=== PATIENT | female | born 1950 | race American Indian/Alaskan Native ===

== ENCOUNTER 2017-12-29 09:06 | Outpatient (CLI) | payer MEDICARE ==
--- NOTE | 2017-12-29 12:46 | Mammography Report ---
BILATERAL DIGITAL DIAGNOSTIC MAMMOGRAM with CAD and RIGHT BREAST ULTRASOUND: 12/29/17 CLINICAL: Right palpable breast lump and pain. COMPARISON:08/20/16 FINDINGS: The breasts are heterogeneously dense, which may obscure small masses.No mass, architectural distortion or suspicious calcifications . No mammographic finding at the right upper inner periareolar palpable marker. Ultrasound of the right breast in the area of the palpable was performed. A complex cyst at 2 o'clock 5 cm from the nipple measures 8 x 7 x 4 mm. It contains a few septations and correlates with a palpable lump. A complex cyst at 8 o'clock 10 cm from the nipple measures 7 x 5 x 4 mm and correlates with the palpable lump. There is suggestion of a mural nodule but no blood flow is demonstrated by color or pulsed Doppler. IMPRESSION: Probably benign complex cysts of the right breast at 2 o'clock and 8 o'clock. Recommend three-month followup right breast ultrasound. BI-RADS CATEGORY: 3 - - Probably Benign ACR BI-RADS MAMMOGRAPHIC CODES: 0 = Needs additional imaging evaluation; 1 = Negative; 2 = Benign; 3 = Probably benign; 4 = Suspicious; 5 = Malignant; 6 = Known biopsy-proven malignancy COMMENT: 1. Dense breast tissue, i.e., adenosis, fibrocystic changes, etc., may obscure an underlying neoplasm. 2. Approximately 10% of cancers are not detected with mammography. 3. A negative mammography report should not delay biopsy if a clinically suspicious mass is present. COMMENT: Patient follow-up letters are generated by our [employer] application.
--- NOTE | 2017-12-30 11:35 | Cat Scan Report ---
CT ABDOMEN AND PELVIS WITH CONTRAST: 12/29/17 09:06:00 CLINICAL: Abdominal pain. COMPARISON: None. TECHNIQUE: Volumetric acquisition and 1.25 millimeter scan reconstructions after the intravenous injection of 100 cc Omnipaque 300. Oral contrast was also given. Consent was obtained prior to the administration of IV contrast. At the completion of the exam, I was notified by the technologist that contrast had extravasated into the hand and I immediately examined the patient. She had no complaint but the dorsum of the hand was moderately swollen but soft and cool to the touch. No skin discoloration. FINDINGS: Abdomen: Less than optimum opacification which is consistent with a significant extravasation of contrast at the time of the injection. The lung bases are clear. Normal liver size, contour in overall density. Several benign hepatic cysts. The largest is in the lateral segment of the left lobe and measures 3.2 x 2.3 cm. No liver mass. Normal hepatic vasculature and inferior vena cava. Normal bile ducts. No gallbladder identified. Normal stomach, duodenum, pancreas and spleen. Normal adrenal glands. A right upper pole renal cyst measures 8.2 x 7.7 cm. No other cysts are identified. No solid mass. A 2 mm nonobstructive right lower pole urinary calculus and a 1 mm left lower pole nonobstructive urinary calculus. The renal collecting systems and ureters are nondilated. Normal small bowel.Normal ascending, transverse and descending colon. An appendix is not identified. No mass, lymphadenopathy or ascites.No pneumoperitoneum. The anterior abdominal wall is intact with no ventral hernia. Pelvis: Normal urinary bladder and vaginal cuff status post hysterectomy. Normal ovaries. Normal rectum and sigmoid colon. Bilateral small fat containing femoral hernias, left larger than right. Bone windows demonstrate no bone lesion. IMPRESSION:1. Benign hepatic and right renal cysts. 2. Bilateral lower pole nonobstructive tiny urinary calculi. 3. Status post cholecystectomy, appendectomy and hysterectomy. 4. Small bilateral fat containing femoral hernias.
== END 2017-12-29 09:07 | disposition home or self-care (01) ==
LOC: SPVIMAG 09:06
PROVIDERS: ATTEND Internal Medicine
DX: N28.1 Cyst of kidney, acquired (principal); N20.0 Calculus of kidney; K41.20 Bilateral femoral hernia, without obstruction or gangrene, not specified as recurrent; K76.89 Other specified diseases of liver; N60.01 Solitary cyst of right breast; Z90.710 Acquired absence of both cervix and uterus; Z90.49 Acquired absence of other specified parts of digestive tract; Z90.89 Acquired absence of other organs
CPT/HCPCS: 74177; 76642; 77066; Q9967

== ENCOUNTER 2017-12-29 21:09 | Inpatient (IN) | payer MEDICARE ==
[2017-12-29] MEDS ORDERED: NORCO 7.5/325 PO ONE (21:55)
[2017-12-29] MEDS ORDERED: THERMAZENE 50 GRAM TP ONE (22:00)
--- NOTE | 2017-12-30 00:04 | Emergency Department Report ---
ED Burn/Smoke HPI - General Chief complaint: Burn/Smoke Inhalation Stated complaint: ALLGERIC REACTION Time Seen by Provider: 12/29/17 21:58 Source: patient Mode of arrival: Ambulatory Limitations: No Limitations - History of Present Illness Initial comments: This is a 67-year-old female nontoxic, well nourished in appearance, no acute signs of distress presents to the ED with c/o of right hand swelling and blisters 1 day. Patient states she went to a outpatient facility for a CT scan with contrast and IV contrast infiltrated and then patient developed hand swelling. Patient stated this occurred around 1PM. Patient then stated went home and developled swelling and blisters in the region. Patient denies taking anything besides soaking hand in water. Patient denies any chest pain, shortness of breathe, fever, chills, headache, nausea, vomiting, numbness, tingling, back pain, or abdominal pain. Patient states allergies to aspirin. MD Complaint: burn, chemical exposure -: This afternoon Type of Exposure: chemical (IV dye) Smoke Inhalation: none Place: industrial (care facility) Location - Extremities: Right: Forearm, Hand Severity: mild Severity scale (0 -10): 8 Associated Symptoms: denies: headache, vision changes, cough, diaphoresis, fever /chills, chest pain, flushing, neck pain, nausea/vomiting - Related Data Home Medications Medication Instructions Recorded Confirmed Last Taken Citalopram [celeXA] 20 mg PO QDAY 12/29/17 12/29/17 12/29/17 Estrogens, Conjugated [Premarin] 1.25 mg PO QDAY 12/29/17 12/29/17 12/29/17 Pregabalin [Lyrica] 25 mg PO DAILY 12/29/17 12/29/17 12/29/17 Simvastatin [Zocor TAB] 40 mg PO QHS 12/29/17 12/29/17 12/28/17 traMADol [Ultram 50 MG tab] 50 mg PO BID PRN 12/29/17 12/29/17 Unknown Allergies Allergy/AdvReac Type Severity Reaction Status Date / Time aspirin Allergy Itching Verified 12/29/17 21:26 Burn HPI - History Stated Complaint: ALLGERIC REACTION Chief Complaint: Burn/Smoke Inhalation Time Seen by Provider: 12/29/17 21:58 - Home Meds and Allergies Home Medications: Home Medications Medication Instructions Recorded Confirmed Last Taken Citalopram [celeXA] 20 mg PO QDAY 12/29/17 12/29/17 12/29/17 Estrogens, Conjugated [Premarin] 1.25 mg PO QDAY 12/29/17 12/29/17 12/29/17 Pregabalin [Lyrica] 25 mg PO DAILY 12/29/17 12/29/17 12/29/17 Simvastatin [Zocor TAB] 40 mg PO QHS 12/29/17 12/29/17 12/28/17 traMADol [Ultram 50 MG tab] 50 mg PO BID PRN 12/29/17 12/29/17 Unknown Allergies/Adverse Reactions: Allergies Allergy/AdvReac Type Severity Reaction Status Date / Time aspirin Allergy Itching Verified 12/29/17 21:26 ED Review of Systems ROS: Stated complaint: ALLGERIC REACTION Other details as noted in HPI Constitutional: denies: chills, fever Eyes: denies: eye pain, eye discharge, vision change ENT: denies: ear pain, throat pain Respiratory: denies: cough, shortness of breath, wheezing Cardiovascular: denies: chest pain, palpitations Endocrine: no symptoms reported Gastrointestinal: denies: abdominal pain, nausea, diarrhea Genitourinary: denies: urgency, dysuria, discharge Musculoskeletal: denies: back pain, joint swelling, arthralgia Skin: denies: rash, lesions Neurological: denies: headache, weakness, paresthesias Psychiatric: denies: anxiety, depression Hematological/Lymphatic: denies: easy bleeding, easy bruising ED Past Medical Hx - Past Medical History Previous Medical History?: Yes Hx Hypertension: Yes Hx Psychiatric Treatment: Yes (depression) - Surgical History Past Surgical History?: Yes Additional Surgical History: intestinal reconstruction, kidney stoones - Social History Smoking Status: Former Smoker Substance Use Type: None - Medications Home Medications: Home Medications Medication Instructions Recorded Confirmed Last Taken Type Citalopram [celeXA] 20 mg PO QDAY 12/29/17 12/29/17 12/29/17 History Estrogens, Conjugated [Premarin] 1.25 mg PO QDAY 12/29/17 12/29/17 12/29/17 History Pregabalin [Lyrica] 25 mg PO DAILY 12/29/17 12/29/17 12/29/17 History Simvastatin [Zocor TAB] 40 mg PO QHS 12/29/17 12/29/17 12/28/17 History traMADol [Ultram 50 MG tab] 50 mg PO BID PRN 12/29/17 12/29/17 Unknown History ED Physical Exam - General Limitations: No Limitations General appearance: alert, in no apparent distress - Head Head exam: Present: atraumatic, normocephalic - Eye Eye exam: Present: normal appearance - ENT ENT exam: Present: normal exam, normal orophraynx, mucous membranes moist, other (No angioedema.) - Neck Neck exam: Present: normal inspection, full ROM. Absent: tenderness, meningismus, lymphadenopathy, thyromegaly - Respiratory Respiratory exam: Present: normal lung sounds bilaterally. Absent: respiratory distress, wheezes, rales, rhonchi, stridor, chest wall tenderness, accessory muscle use, decreased breath sounds, prolonged expiratory - Cardiovascular Cardiovascular Exam: Present: regular rate, normal rhythm, normal heart sounds. Absent: irregular rhythm, systolic murmur, diastolic murmur, rubs, gallop - GI/Abdominal GI/Abdominal exam: Present: soft, normal bowel sounds. Absent: distended, tenderness, guarding, rebound, rigid, diminished bowel sounds - Rectal Rectal exam: Present: deferred - Extremities Exam Extremities exam: Present: normal inspection, full ROM, tenderness, normal capillary refill, joint swelling - Expanded Upper Extremity Exam Right Shoulder Exam: Present: normal inspection, full ROM Upper Arm exam: Present: normal inspection, full ROM Elbow exam: Present: normal inspection, full ROM Forearm Wrist exam: Present: normal inspection, full ROM, tenderness, swelling. Absent: abrasion, laceration, ecchymosis, deformity, crepidus, dislocation, erythema, tenderness over anatomical snuff box, pain with axial thumb loading Hand Wrist exam: Present: normal inspection, full ROM, tenderness, swelling, other (2 cm blisters x4). Absent: abrasion, laceration, ecchymosis, deformity, crepidus, dislocation, erythema, amputation, nail avulsion, subungual hematoma Neuro motor exam: Present: wrist extension intact, thumb opposition intact, thumb IP flexion intact, thumb adduction intact, fingers 2-5 abduction intact Neurosensory exam: Present: 2-point discrimination, radial nerve intact, ulnar nerve intact, median nerve intact Vascular: Present: vascular compromise, normal capillary refill, radial pulse, brachial pulse, ulnar pulse - Back Exam Back exam: Present: normal inspection, full ROM - Neurological Exam Neurological exam: Present: alert, oriented X3, normal gait - Psychiatric Psychiatric exam: Present: normal affect, normal mood - Skin Skin exam: Present: warm, dry, intact, normal color. Absent: rash ED Course Vital Signs 12/29/17 12/30/17 12/30/17 21:27 01:04 02:37 Temperature 97.7 F Pulse Rate 92 H 90 Respiratory 20 18 18 Rate Blood Pressure 128/73 Blood Pressure 130/71 [Left] O2 Sat by Pulse 95 97 Oximetry 12/30/17 02:49 Temperature Pulse Rate Respiratory 18 Rate Blood Pressure Blood Pressure [Left] O2 Sat by Pulse 97 Oximetry - Reevaluation(s) Reevaluation #1: 12/30/17 00:07 Patient is speaking in full sentences with no signs of distress noted. - Consultations Consultation #1: 12/30/17 00:07 Patient has been consulted with Dr. Spencer about patient history, physical exam , and labs and examined and screened patient and agrees to ED plan of care. Consultation #2: 12/30/17 00:07 Dr. Oswald from infection disease was consulted by patient history, physical exam and stated to rule out compartment syndrome with x-rays and surgical consult for deep tissue necrosis. Consultation #3: 12/30/17 00:08 Dr. Hidalgo was consulted about patient history, physical exam and stated admit patient under hospitalist services and he will see patient in the morning. 12/30/17 00:08 Dr. Turner (hospitalist) was consulted by patient history, physical exam and excess patient on her services. ED Medical Decision Making - Lab Data Result diagrams: 12/29/17 23:45 12/29/17 23:45 - Medical Decision Making This is a 67-year-old female that presents with chemical burn vs. allergic reaction. Patient is stable and was examined by me. Patient was consulted with Dr. Spencer and Dr. Hidalgo. Patient was admitted to Dr. Turner's services with Dr. Hidalgo about the patient the morning. Labs obtained. Patient was put on athletic monitor. The hand has been rinsed with water and Silvadene applied. PAtient is neurovascular intact. Patient received Solu-Medrol. IV 600 mg clindamycin empirically initiated. Patient was instructed to elevate extremity as per Dr. Hidalgo's request. X-ray obtained and dictated by the radiologist. At time of admission, the patient does not seem toxic or ill in appearance. No acute signs of distress noted. Patient agrees to admission treatment plan of care. No further questions noted by the patient. Critical care attestation.: If time is entered above; I have spent that time in minutes in the direct care of this critically ill patient, excluding procedure time. ED Disposition Clinical Impression: Chemical burn Allergic reaction Qualifiers: Encounter type: initial encounter Qualified Code(s): T78.40XA - Allergy, unspecified, initial encounter Disposition: DC09 OP ADMIT IP TO THIS HOSP Is pt being admited?: Yes Condition: Stable
[2017-12-30] MEDS ORDERED: NACL 0.9% 1000 ML 1,000 ML IV ONE (00:09)
[2017-12-30] MEDS ORDERED: CLEOCIN 600 MG/50 mL 600 MG/50 ML BAG IV ONE (00:11)
[2017-12-30] MEDS ORDERED: MORPHINE IV ONE ×2 (00:22→00:28)
[2017-12-30] MEDS ORDERED: ZOFRAN IV ONE (00:23)
[2017-12-30 00:26] LABS: Basophils # (Auto) 0.1 K/mm3 (0.0-0.1); Eosinophils # (Auto) 0.2 K/mm3 (0.0-0.4); Eosinophils % (Auto) 2.7 % (0.0-4.3); Hematocrit 38.3 % (30.3-42.9); Hemoglobin 12.5 gm/dl (10.1-14.3); Lymphocytes # (Auto) 2.3 K/mm3 (1.2-5.4); Lymphocytes % (Auto) 40.7 % (13.4-35.0); Mean Corpuscular HGB Conc 33 % (30-34); Mean Corpuscular Volume 79 fl (79-97); Monocytes # (Auto) 0.3 K/mm3 (0.0-0.8); Monocytes % (Auto) 5.7 % (0.0-7.3); Platelet Count 183 K/mm3 (140-440); Red Blood Count 4.88 M/mm3 (3.65-5.03); Red Cell Distribution Width 15.8 % (13.2-15.2)
[2017-12-30 00:33] LABS: Mean Corpuscular Hemoglobin 26 pg (28-32)
[2017-12-30 00:35] LABS: BUN/Creatinine Ratio 22; Blood Urea Nitrogen 13 mg/dL (7-17); Calcium 8.1 mg/dL (8.4-10.2); Hemolysis Index 5
[2017-12-30] MEDS ORDERED: SODIUM CHLORIDE FLUSH SYRINGE 10 ML IV PRN (02:00)
[2017-12-30] MEDS ORDERED: MORPHINE IV PRN (02:00)
[2017-12-30] MEDS ORDERED: TYLENOL PO PRN (02:00)
[2017-12-30] MEDS ORDERED: ZOFRAN IV PRN (02:00)
--- NOTE | 2017-12-30 04:58 | History and Physical Report ---
History of Present Illness Date of examination: 12/30/17 Date of admission: 12/30/17 02:01 History of present illness: 67-year-old woman history of hypertension, depression, emergency room for evaluation of right arm swelling. The patient is status post CAT scan of the abdomen and pelvis with IV contrast yesterday. The IV infiltrated and the contrast went into her arm. Her hand and arm is swollen, painful. She states that she had blisters on the hand which was popped in the emergency room. She complained of abdominal pain that has been going on over the last 2 weeks, and upper abdomen, each she, constant, intense today for recheck on her radiation, no nausea vomiting Review Of Systems: Constitutional: no weight loss Ears, eyes, nose, mouth and throat: no nasal congestion, no nasal discharge, no sinus pressure, blurry vision, diplopia Neck: No neck pain or rigidity. Cardiovascular: no chest pain orthopnea, palpitations Respiratory: No shortness of breath, cough Gastrointestinal: no hematochezia Genitourinary : no dysuria, frequency , hematuria Musculoskeletal: no muscle ache Integumentary: no rash, no pruritis Neurological: no parathesias, focal weakness Endocrine: no cold or heat intolerance, no polyuria or polydipsia Hematologic/Lymphatic: no easy bruising, no easy bleeding, no gland swelling Allergic/Immunologic: no urticaria, no angioedema. PAST MEDICAL HISTORY: Hypertension, depression PAST SURGICAL HISTORY: Status post bowel removal with intestinal reconstruction SOCIAL HISTORY: Denies alcohol, tobacco, drugs FAMILY HISTORY: Hypertension Medications and Allergies Allergies Allergy/AdvReac Type Severity Reaction Status Date / Time aspirin Allergy Itching Verified 12/29/17 21:26 Home Medications Medication Instructions Recorded Confirmed Last Taken Type Citalopram [celeXA] 20 mg PO QDAY 12/29/17 12/29/17 12/29/17 History Estrogens, Conjugated [Premarin] 1.25 mg PO QDAY 12/29/17 12/29/17 12/29/17 History Pregabalin [Lyrica] 25 mg PO DAILY 12/29/17 12/29/17 12/29/17 History Simvastatin [Zocor TAB] 40 mg PO QHS 12/29/17 12/29/17 12/28/17 History traMADol [Ultram 50 MG tab] 50 mg PO BID PRN 12/29/17 12/29/17 Unknown History Active Meds: Active Medications Acetaminophen (Tylenol) 650 mg PO Q4H PRN PRN Reason: Pain MILD(1-3)/Fever >100.5/KRISHNA Enoxaparin Sodium (Lovenox) 40 mg SUB-Q QDAY [facility] Sodium Chloride (Nacl 0.9% 1000 Ml) 1,000 mls @ 125 mls/hr IV ONCE ONE Stop: 12/30/17 08:08 Last Admin: 12/30/17 01:03 Dose: 125 mls/hr Methylprednisolone Sodium Succinate (Solu-Medrol) 125 mg IV Q6H [facility] Last Admin: 12/30/17 04:27 Dose: 125 mg Morphine Sulfate (Morphine) 2 mg IV Q4H PRN PRN Reason: Pain, Moderate (4-6) Ondansetron HCl (Zofran) 4 mg IV Q8H PRN PRN Reason: Nausea And Vomiting Sodium Chloride (Sodium Chloride Flush Syringe 10 Ml) 10 ml IV BID [facility] Sodium Chloride (Sodium Chloride Flush Syringe 10 Ml) 10 ml IV PRN PRN PRN Reason: LINE FLUSH Exam - Physical Exam Narrative exam: Gen. appearance: Patient lying in bed, no apparent distress HEENT: Normocephalic, atraumatic, pupils equally round and reactive to light, extraocular movement intact, and no sclericterus,. No JVD or thyromegaly or nodule,neck supple, no carotid bruit ,mucous membranes moist, no exudate or erythema Heart: S1, S2, regular rate and rhythm Lungs: Clear to auscultation bilaterally, breathing comfortable Abdomen: Positive bowel sounds, nontender, nondistended, no organomegaly Extremity: No edema, cyanosis, clubbing Skin: No rash, nodules, warm, dry Neuro: Oriented 3, cranial nerves II-12 intact, speech is fluent, motor and sensory intact - Constitutional Vitals: Temp Pulse Resp BP Pulse Ox 97.7 F 90 18 130/71 97 12/29/17 21:27 12/30/17 02:37 12/30/17 02:49 12/30/17 02:37 12/30/17 02:49 Results - Labs CBC & Chem 7: 12/29/17 23:45 12/29/17 23:45 Labs: Abnormal lab results 03/22/18 03/22/18 Range/Units 23:45 23:45 MCH 26 L (28-32) pg RDW 15.8 H (13.2-15.2) % Lymph % (Auto) 40.7 H (13.4-35.0) % Sodium 134 L (137-145) mmol/L Carbon Dioxide 20 L (22-30) mmol/L Creatinine 0.6 L (0.7-1.2) mg/dL Calcium 8.1 L (8.4-10.2) mg/dL - Imaging and Cardiology CT scan - abdomen: pending CT scan - pelvis: pending Assessment and Plan Assessment Infiltration of the right upper extremity with IV contrast Hypertension Depression Plan Admit to medicine Elevated upper extremity, starts IV steroids, consult orthopedic IV morphine, DVT prophylaxis
--- NOTE | 2017-12-30 05:24 | XRay Report ---
FINAL REPORT EXAM: XR HAND 3+V RT HISTORY: r/o compartment syndrome IV contrast infiltrate COMPARISONS: Right forearm radiographs of the same date FINDINGS: Three views right hand Extensive dorsal soft tissue swelling. Subcutaneous emphysema. No fracture or gross malalignment. IMPRESSION: Compartment syndrome cannot be diagnosed or excluded radiographically. Extensive soft tissue swelling and subcutaneous emphysema in the right hand and forearm certainly put the patient at risk. If there is neurovascular compromise on physical exam, surgical consultation is recommended. Notification initiated via [employer] merchandise support associate immediately following this dictation on 12/30/2017.
--- NOTE | 2017-12-30 05:25 | XRay Report ---
FINAL REPORT EXAM: XR FOREARM RT HISTORY: r/o compartment syndrome/IV contrast infiltrate COMPARISONS: Right hand radiographs of the same date FINDINGS: AP and lateral views right forearm Extensive dorsal soft tissue swelling. Subcutaneous emphysema. Hyperdense material throughout the right forearm is consistent with IV contrast infiltration. No fracture or gross malalignment. IMPRESSION: Compartment syndrome cannot be diagnosed or excluded radiographically. Extensive soft tissue swelling, IV contrast infiltration and subcutaneous emphysema in the right hand and forearm certainly put the patient at risk. If there is neurovascular compromise on physical exam, surgical consultation is recommended. Notification initiated via [employer] technician support engineer immediately following this dictation on 12/30/2017.
[2017-12-30] MEDS ORDERED: MORPHINE ONE (05:55)
[2017-12-30] MEDS: MORPHINE IV PRN ×4 (06:14→22:15)
[2017-12-30] MEDS: SODIUM CHLORIDE FLUSH SYRINGE 10 ML IV SCH ×3 (06:16→22:18)
[2017-12-30] MEDS: celeXA PO SCH (10:23)
[2017-12-30] MEDS: PEPCID PO SCH ×2 (10:23→22:17)
[2017-12-30] MEDS: LOVENOX SUB-Q SCH (10:23)
[2017-12-30] MEDS: LYRICA PO SCH (10:23)
[2017-12-30] MEDS: PREMARIN PO SCH (10:23)
--- NOTE | 2017-12-30 12:49 | Consultation ---
History of Present Illness - HPI Consult date: 12/30/17 Consult reason: other History of present illness: 67-year-old woman history of hypertension, depression, emergency room for evaluation of right arm swelling. The patient is status post CAT scan of the abdomen and pelvis with IV contrast yesterday. The IV infiltrated and the contrast went into her arm. Seen in the ED and admitted for observation, asked to see regarding possibility of deep infection vs compartment syndrome.... Medications and Allergies Allergies Allergy/AdvReac Type Severity Reaction Status Date / Time aspirin Allergy Itching Verified 12/29/17 21:26 Home Medications Medication Instructions Recorded Confirmed Last Taken Type Citalopram [celeXA] 20 mg PO QDAY 12/29/17 12/29/17 12/29/17 History Estrogens, Conjugated [Premarin] 1.25 mg PO QDAY 12/29/17 12/29/17 12/29/17 History Pregabalin [Lyrica] 25 mg PO DAILY 12/29/17 12/29/17 12/29/17 History Simvastatin [Zocor TAB] 40 mg PO QHS 12/29/17 12/29/17 12/28/17 History traMADol [Ultram 50 MG tab] 50 mg PO BID PRN 12/29/17 12/29/17 Unknown History Active Meds: Active Medications Acetaminophen (Tylenol) 650 mg PO Q4H PRN PRN Reason: Pain MILD(1-3)/Fever >100.5/KRISHNA Citalopram Hydrobromide (Celexa) 20 mg PO QDAY [facility] Last Admin: 12/30/17 10:23 Dose: 20 mg Enoxaparin Sodium (Lovenox) 40 mg SUB-Q QDAY [facility] Last Admin: 12/30/17 10:23 Dose: 40 mg Estrogens Conjugated (Premarin) 1.25 mg PO QDAY [facility] Last Admin: 12/30/17 10:23 Dose: 1.25 mg Famotidine (Pepcid) 20 mg PO BID [facility] Last Admin: 12/30/17 10:23 Dose: 20 mg Methylprednisolone Sodium Succinate (Solu-Medrol) 60 mg IV Q6H [facility] Last Admin: 12/30/17 10:23 Dose: 60 mg Morphine Sulfate (Morphine) 2 mg IV Q4H PRN PRN Reason: Pain, Moderate (4-6) Last Admin: 12/30/17 10:21 Dose: 2 mg Ondansetron HCl (Zofran) 4 mg IV Q8H PRN PRN Reason: Nausea And Vomiting Last Admin: 12/30/17 10:22 Dose: 4 mg Pravastatin Sodium (Pravachol) 80 mg PO QHS [facility] Pregabalin (Lyrica) 25 mg PO DAILY [facility] Last Admin: 12/30/17 10:23 Dose: 25 mg Sodium Chloride (Sodium Chloride Flush Syringe 10 Ml) 10 ml IV BID [facility] Last Admin: 12/30/17 10:24 Dose: 10 ml Sodium Chloride (Sodium Chloride Flush Syringe 10 Ml) 10 ml IV PRN PRN PRN Reason: LINE FLUSH Physical Examination - Physical exam Narrative exam: right arm - moderate swelling, superficial blisters, no erythema, good active ROM at digits, good capillary refill Assessment and Plan right hand and wrist pain recommend observation only, arm sling and wrist brace....
--- NOTE | 2017-12-30 15:40 | Progress Note ---
<GEMINI SMALL - Last Filed: 12/30/17 15:36> Assessment and Plan Assessment and plan: 67-year-old woman history of hypertension, depression presented to ED one day ago with complaints of R forearm and hand swelling after IV contrast infiltrated and went into her arm. Infiltration of the right upper extremity with IV contrast Elevated upper extremity, continue IV steroids, consult orthopedic Hypertension BP currently controlled, no OP meds listed, will monitor and administer antihypertensives PRN Depression Continue Celexa Hyperlipidemia Continue statin therapy DVT prophylaxis Lovenox History Interval history: Patient seen and examined. Reports R hand pain when palpated. No other complaints at this time. Labs and nursing notes reviewed Hospitalist Physical - Constitutional Vitals: Temp Pulse Resp BP Pulse Ox 98.0 F 79 18 113/67 99 12/30/17 14:00 12/30/17 14:00 12/30/17 14:00 12/30/17 14:00 12/30/17 14:00 General appearance: Present: no acute distress, well-nourished, obese - EENT Eyes: Present: PERRL, EOM intact ENT: hearing intact, clear oral mucosa - Neck Neck: Present: supple, normal ROM - Respiratory Respiratory effort: normal Respiratory: bilateral: CTA - Cardiovascular Rhythm: regular Heart Sounds: Present: S1 & S2. Absent: rub, click - Extremities Extremities: no ischemia, Full ROM Extremity abnormal: edema (trace BLE, R forearm and arm), tenderness (R forearm and hand), other (superficial blisters on R hand) - Abdominal General gastrointestinal: soft, non-tender, non-distended - Integumentary Integumentary: Present: clear, warm, dry - Psychiatric Psychiatric: appropriate mood/affect, intact judgment & insight, cooperative - Neurologic Neurologic: CNII-XII intact, moves all extremities - Allied Health Allied health notes reviewed: nursing Results - Labs CBC & Chem 7: 12/29/17 23:45 12/29/17 23:45 Labs: Laboratory Last Values WBC 5.7 K/mm3 (4.5-11.0) 12/29/17 23:45 RBC 4.88 M/mm3 (3.65-5.03) 12/29/17 23:45 Hgb 12.5 gm/dl (10.1-14.3) 12/29/17 23:45 Hct 38.3 % (30.3-42.9) 12/29/17 23:45 MCV 79 fl (79-97) 12/29/17 23:45 MCH 26 pg (28-32) L 12/29/17 23:45 MCHC 33 % (30-34) 12/29/17 23:45 RDW 15.8 % (13.2-15.2) H 12/29/17 23:45 Plt Count 183 K/mm3 (140-440) 12/29/17 23:45 Lymph % (Auto) 40.7 % (13.4-35.0) H 12/29/17 23:45 [place] % (Auto) 5.7 % (0.0-7.3) 12/29/17 23:45 Eos % (Auto) 2.7 % (0.0-4.3) 12/29/17 23:45 Baso % (Auto) 1.0 % (0.0-1.8) 12/29/17 23:45 Lymph # 2.3 K/mm3 (1.2-5.4) 12/29/17 23:45 [place] # 0.3 K/mm3 (0.0-0.8) 12/29/17 23:45 Eos # 0.2 K/mm3 (0.0-0.4) 12/29/17 23:45 Baso # 0.1 K/mm3 (0.0-0.1) 12/29/17 23:45 Seg Neutrophils % 49.9 % (40.0-70.0) 12/29/17 23:45 Seg Neutrophils # 2.9 K/mm3 (1.8-7.7) 12/29/17 23:45 Sodium 134 mmol/L (137-145) L 12/29/17 23:45 Potassium 3.7 mmol/L (3.6-5.0) 12/29/17 23:45 Chloride 98.7 mmol/L (98-107) 12/29/17 23:45 Carbon Dioxide 20 mmol/L (22-30) L 12/29/17 23:45 Anion Gap 19 mmol/L 12/29/17 23:45 BUN 13 mg/dL (7-17) 12/29/17 23:45 Creatinine 0.6 mg/dL (0.7-1.2) L 12/29/17 23:45 Estimated GFR > 60 ml/min 12/29/17 23:45 BUN/Creatinine Ratio 22 % 12/29/17 23:45 Glucose 94 mg/dL (65-100) 12/29/17 23:45 Calcium 8.1 mg/dL (8.4-10.2) L 12/29/17 23:45 <LISSETT ARANA - Last Filed: 12/30/17 17:04> Assessment and Plan Assessment and plan: I saw and evaluated the patient. I agree with the findings and the plan of care as documented in the PA's~note, with the following corrections and additions. Noted improvement in swelling from before. Will add famotidine. patient with good range of motion distal and proximal to injury with no neurological compromise Brace as noted by ortho Hospitalist Physical - Constitutional Vitals: Temp Pulse Resp BP Pulse Ox 98.0 F 79 18 113/67 99 12/30/17 14:00 12/30/17 14:00 12/30/17 14:00 12/30/17 14:00 12/30/17 14:00 Results - Labs CBC & Chem 7: 12/29/17 23:45 12/29/17 23:45 Labs: Laboratory Last Values WBC 5.7 K/mm3 (4.5-11.0) 12/29/17 23:45 RBC 4.88 M/mm3 (3.65-5.03) 12/29/17 23:45 Hgb 12.5 gm/dl (10.1-14.3) 12/29/17 23:45 Hct 38.3 % (30.3-42.9) 12/29/17 23:45 MCV 79 fl (79-97) 12/29/17 23:45 MCH 26 pg (28-32) L 12/29/17 23:45 MCHC 33 % (30-34) 12/29/17 23:45 RDW 15.8 % (13.2-15.2) H 12/29/17 23:45 Plt Count 183 K/mm3 (140-440) 12/29/17 23:45 Lymph % (Auto) 40.7 % (13.4-35.0) H 12/29/17 23:45 [place] % (Auto) 5.7 % (0.0-7.3) 12/29/17 23:45 Eos % (Auto) 2.7 % (0.0-4.3) 12/29/17 23:45 Baso % (Auto) 1.0 % (0.0-1.8) 12/29/17 23:45 Lymph # 2.3 K/mm3 (1.2-5.4) 12/29/17 23:45 [place] # 0.3 K/mm3 (0.0-0.8) 12/29/17 23:45 Eos # 0.2 K/mm3 (0.0-0.4) 12/29/17 23:45 Baso # 0.1 K/mm3 (0.0-0.1) 12/29/17 23:45 Seg Neutrophils % 49.9 % (40.0-70.0) 12/29/17 23:45 Seg Neutrophils # 2.9 K/mm3 (1.8-7.7) 12/29/17 23:45 Sodium 134 mmol/L (137-145) L 12/29/17 23:45 Potassium 3.7 mmol/L (3.6-5.0) 12/29/17 23:45 Chloride 98.7 mmol/L (98-107) 12/29/17 23:45 Carbon Dioxide 20 mmol/L (22-30) L 12/29/17 23:45 Anion Gap 19 mmol/L 12/29/17 23:45 BUN 13 mg/dL (7-17) 12/29/17 23:45 Creatinine 0.6 mg/dL (0.7-1.2) L 12/29/17 23:45 Estimated GFR > 60 ml/min 12/29/17 23:45 BUN/Creatinine Ratio 22 % 12/29/17 23:45 Glucose 94 mg/dL (65-100) 12/29/17 23:45 Calcium 8.1 mg/dL (8.4-10.2) L 12/29/17 23:45
[2017-12-30] MEDS ORDERED: PRAVACHOL PO SCH (22:00)
[2017-12-31 05:36] LABS: Basophils % (Auto) 0.1 % (0.0-1.8); Hematocrit 33.2 % (30.3-42.9); Hemoglobin 11.4 gm/dl (10.1-14.3); Lymphocytes # (Auto) 1.1 K/mm3 (1.2-5.4); Lymphocytes % (Auto) 13.8 % (13.4-35.0); Mean Corpuscular HGB Conc 34 % (30-34); Mean Corpuscular Hemoglobin 27 pg (28-32); Mean Corpuscular Volume 77 fl (79-97); Monocytes # (Auto) 0.3 K/mm3 (0.0-0.8); Monocytes % (Auto) 3.4 % (0.0-7.3); Platelet Count 171 K/mm3 (140-440); Red Blood Count 4.29 M/mm3 (3.65-5.03); Red Cell Distribution Width 15.8 % (13.2-15.2)
[2017-12-31 06:22] LABS: BUN/Creatinine Ratio 17; Blood Urea Nitrogen 12 mg/dL (7-17); Calcium 7.8 mg/dL (8.4-10.2); Hemolysis Index 11
[2017-12-31 07:50] VITALS: BP 123/66
[2017-12-31] MEDS: PREMARIN PO SCH (09:06)
[2017-12-31] MEDS: LOVENOX SUB-Q SCH (09:06)
[2017-12-31] MEDS: LYRICA PO SCH (09:07)
[2017-12-31] MEDS: celeXA PO SCH (09:07)
[2017-12-31] MEDS: SODIUM CHLORIDE FLUSH SYRINGE 10 ML IV SCH (09:09)
[2017-12-31] MEDS: MORPHINE IV PRN (09:14)
[2017-12-31] MEDS: PEPCID PO SCH (09:14)
--- NOTE | 2017-12-31 10:25 | Discharge Summary ---
Providers - Providers Date of Admission: 12/30/17 02:01 Attending physician: LISSETT ARANA MD 12/30/17 00:08 Consult to Physician [CONS] Stat Comment: aiden Consulting Provider: DOLLY DEAL Physician Instructions: spoke with @ 12pm 12-30-17 Reason For Exam: hand swelling and pain Primary care physician: LOLI GONSALEZ Hospitalization Reason for admission: right hand allergic reaction to contrast Condition: Stable Hospital course: 67-year-old woman history of hypertension, depression presented to ED one day ago with complaints of R forearm and hand swelling after IV contrast infiltrated and went into her arm. However patient was noted to have significant external fixation of soft tissues on the right arm with multiple bullae. Orthopedic surgeon was consulted for evaluation and recommendation was for counseling and wrist brace. Patient was treated with steroids and PPI with remarkable improvement in swelling. There was no noticeable distal PROXIMAL neurological deficits. Patient is clinically stable at this point for discharge to follow up with her primary care physician not clear evidence of compartment syndrome on deep infection were noted. Discharge diagnosis -Infiltration of the right upper extremity with IV contrast -Allergic reaction to contrast -Soft tissue injury secondary to contrast extravasation -Hypertension -Depression -Hyperlipidemia Disposition: DC- TO HOME OR SELFCARE Time spent for discharge: 35 mins Core Measure Documentation - Palliative Care Palliative Care/ Comfort Measures: Not Applicable - Core Measures Any of the following diagnoses?: none - VTE Discharge Requirements Deep Vein Thrombosis/Pulmonary Embolism Present on Admission: No Exam - Physical Exam Narrative exam: General appearance: Present: no acute distress, well-nourished, obese - EENT Eyes: Present: PERRL, EOM intact ENT: hearing intact, clear oral mucosa - Neck Neck: Present: supple, normal ROM - Respiratory Respiratory effort: normal Respiratory: bilateral: CTA - Cardiovascular Rhythm: regular Heart Sounds: Present: S1 & S2. Absent: rub, click - Extremities Extremities: no ischemia, Full ROM Extremity abnormal: edema (trace BLE, R forearm and arm), tenderness (R forearm and hand), other (superficial blisters on R hand) - Abdominal General gastrointestinal: soft, non-tender, non-distended - Integumentary Integumentary: Present: clear, warm, dry - Psychiatric Psychiatric: appropriate mood/affect, intact judgment & insight, cooperative - Neurologic Neurologic: CNII-XII intact, moves all extremities - Allied Health Allied health notes reviewed: nursing - Constitutional Vitals: Temp Pulse Resp BP Pulse Ox 97.8 F 80 20 123/66 94 12/31/17 07:38 12/31/17 07:38 12/31/17 09:14 12/31/17 07:38 12/31/17 07:38 Plan Activity: advance as tolerated, fall precautions (care with the right upper ext) Diet: low fat Special Instructions: record daily weights, record daily BP diary Follow up with: LOLI GONSALEZ MD [Primary Care Provider] - 3-5 Days Prescriptions: Famotidine [Pepcid] 20 mg PO DAILY #30 tablet Prednisone [predniSONE 10 mg (6-Day Pack, 21 Tabs)] 10 mg PO .TAPER #1 tab.ds.pk traMADol [Ultram 50 MG tab] 50 mg PO BID PRN #20 tablet PRN Reason: Pain Other Discharge Orders: Brace (Amb) Location: None Selected
== END 2017-12-31 13:25 | disposition home or self-care (01) | DRG 812 ==
LOC: ED 21:09 → 2B-ACE 12-30 02:01
PROVIDERS: ADMIT Internal Medicine; ATTEND Internal Medicine
DX: T80.89XA Other complications following infusion, transfusion and therapeutic injection, initial encounter (principal); I10 Essential (primary) hypertension; T78.40XA Allergy, unspecified, initial encounter; T22.411A Corrosion of unspecified degree of right forearm, initial encounter; Y93.89 Activity, other specified; Y92.89 Other specified places as the place of occurrence of the external cause; Y99.8 Other external cause status; F32.9 Major depressive disorder, single episode, unspecified; E78.5 Hyperlipidemia, unspecified
CPT/HCPCS: 36415; 80048; 85025; 94760; 96365; 96372; 96375; A9270-GY; J1650; J2270; J2405; J2930; J7030

== ENCOUNTER 2018-01-02 12:19 | Emergency (ER) | payer MEDICARE ==
[2018-01-02 12:43] VITALS: BP 120/73
[2018-01-02] MEDS ORDERED: KEFLEX PO ONE (15:25)
[2018-01-02] MEDS ORDERED: TYLENOL PO ONE (15:25)
--- NOTE | 2018-01-02 15:27 | Emergency Department Report ---
Chief Complaint: Extremity Injury, Upper Stated Complaint: NAUSEA, BLISTERS Time Seen by Provider: 01/02/18 15:19 - HPI History of Present Illness: The patient is 67-year-old female presents for evaluation of pain to the right hand. The patient reports worsening of dorsal right hand pain, onset 4 days ago after contrast dye infiltration during CT scan performed last week. She states that her pain is moderate to severe, burning and sharp in quality, exacerbated with movement. She denies trauma or new injury to the hand, fever, purulent drainage or discharge, paresthesias, motor deficit, swelling. - Exam Vital Signs: Vital Signs 01/02/18 12:38 Temperature 98.2 F Pulse Rate 84 Respiratory 24 Rate Blood Pressure 120/73 O2 Sat by Pulse 97 Oximetry MSE screening note: Focused history and physical exam performed. Due to findings the following was ordered: ED Disposition for MSE Condition: Stable Referrals: PRIMARY CARE, [Primary Care Provider] - 3-5 Days
--- NOTE | 2018-01-02 16:02 | Emergency Department Report ---
ED Upper Extremity Inj HPI - General Chief Complaint: Extremity Injury, Upper Stated Complaint: NAUSEA, BLISTERS Time Seen by Provider: 01/02/18 15:19 Source: patient Mode of arrival: Ambulatory Limitations: No Limitations - History of Present Illness Initial Comments: This is a 67-year-old female nontoxic, well nourished in appearance, no acute signs of distress presents to the ED for evaluation of right hand. Patient was seen by me 3 days and was admitted to role out compartment versus deep tissue necrosis and was discharged. Patient was seen 3 days ago for IV contrast dye infiltration during CT scan. Patient stated still has pain but is relieved by Ultram that was prescribed to her at discharge. Patient stated she came in today just to get a re-evaluate. Patient denies any new trauma. Patient denies any fever, purulent drainage or discharge, paresthesias, motor deficit, swelling , chest pain, shortness of breathe. States allergies to aspirin. MD Complaint: Injury to:: right, hand -: days(s) (3) Place: outdoors Severity scale (0 -10): 8 Improves With: none Worsens With: none Associated Symptoms: denies other symptoms. denies: weakness, numbness, neck pain, suspects foreign body, nausea/vomiting, heard/felt popping sensat - Related Data Home Medications Medication Instructions Recorded Confirmed Last Taken Citalopram [Celexa] 20 mg PO QDAY 12/29/17 12/29/17 12/29/17 Estrogens, Conjugated [Premarin] 1.25 mg PO QDAY 12/29/17 12/29/17 12/29/17 Pregabalin [Lyrica] 25 mg PO DAILY 12/29/17 12/29/17 12/29/17 Simvastatin [Zocor TAB] 40 mg PO QHS 12/29/17 12/29/17 12/28/17 Previous Rx's Medication Instructions Recorded Last Taken Type Famotidine [Pepcid] 20 mg PO DAILY #30 tablet 12/31/17 Unknown Rx Prednisone [predniSONE 10 mg 10 mg PO .TAPER #1 tab.ds.pk 12/31/17 Unknown Rx (6-Day Pack, 21 Tabs)] traMADol [Ultram 50 MG tab] 50 mg PO BID PRN #20 tablet 12/31/17 Unknown Rx Cephalexin [Keflex] 500 mg PO Q12HR 7 Days cap 01/02/18 Unknown Rx Allergies Allergy/AdvReac Type Severity Reaction Status Date / Time aspirin Allergy Itching Verified 12/29/17 21:26 ED Review of Systems ROS: Stated complaint: NAUSEA, BLISTERS Other details as noted in HPI Constitutional: denies: chills, fever Eyes: denies: eye pain, eye discharge, vision change ENT: denies: ear pain, throat pain Respiratory: denies: cough, shortness of breath, wheezing Cardiovascular: denies: chest pain, palpitations Endocrine: no symptoms reported Gastrointestinal: denies: abdominal pain, nausea, diarrhea Genitourinary: denies: urgency, dysuria, discharge Musculoskeletal: denies: back pain, joint swelling, arthralgia Skin: denies: rash, lesions Neurological: denies: headache, weakness, paresthesias Psychiatric: denies: anxiety, depression Hematological/Lymphatic: denies: easy bleeding, easy bruising ED Past Medical Hx - Past Medical History Previous Medical History?: Yes Hx Hypertension: Yes Hx Psychiatric Treatment: Yes (depression) Hx HIV: No - Surgical History Past Surgical History?: Yes Additional Surgical History: intestinal reconstruction, kidney stoones - Social History Smoking Status: Never Smoker Substance Use Type: None - Medications Home Medications: Home Medications Medication Instructions Recorded Confirmed Last Taken Type Citalopram [Celexa] 20 mg PO QDAY 12/29/17 12/29/17 12/29/17 History Estrogens, Conjugated [Premarin] 1.25 mg PO QDAY 12/29/17 12/29/17 12/29/17 History Pregabalin [Lyrica] 25 mg PO DAILY 12/29/17 12/29/17 12/29/17 History Simvastatin [Zocor TAB] 40 mg PO QHS 12/29/17 12/29/17 12/28/17 History Famotidine [Pepcid] 20 mg PO DAILY #30 tablet 12/31/17 Unknown Rx Prednisone [predniSONE 10 mg 10 mg PO .TAPER #1 tab.ds.pk 12/31/17 Unknown Rx (6-Day Pack, 21 Tabs)] traMADol [Ultram 50 MG tab] 50 mg PO BID PRN #20 tablet 12/31/17 Unknown Rx Cephalexin [Keflex] 500 mg PO Q12HR 7 Days cap 01/02/18 Unknown Rx ED Physical Exam - General Limitations: No Limitations General appearance: alert, in no apparent distress - Head Head exam: Present: atraumatic, normocephalic - Eye Eye exam: Present: normal appearance - ENT ENT exam: Present: mucous membranes moist - Neck Neck exam: Present: normal inspection - Respiratory Respiratory exam: Present: normal lung sounds bilaterally. Absent: respiratory distress - Cardiovascular Cardiovascular Exam: Present: regular rate, normal rhythm. Absent: systolic murmur, diastolic murmur, rubs, gallop - GI/Abdominal GI/Abdominal exam: Present: soft, normal bowel sounds - Extremities Exam Extremities exam: Present: normal inspection, full ROM, tenderness, normal capillary refill. Absent: joint swelling - Expanded Upper Extremity Exam Right General: Present: normal inspection Shoulder Exam: Present: normal inspection, full ROM Upper Arm exam: Present: normal inspection, full ROM Elbow exam: Present: normal inspection, full ROM Forearm Wrist exam: Present: normal inspection, full ROM Hand Wrist exam: Present: normal inspection, full ROM, tenderness, other ( vesicle). Absent: swelling, abrasion, laceration, ecchymosis, deformity, crepidus, dislocation, erythema, amputation, nail avulsion, subungual hematoma Neuro motor exam: Present: wrist extension intact, thumb opposition intact, thumb IP flexion intact, thumb adduction intact, fingers 2-5 abduction intact Neurosensory exam: Present: 2-point discrimination, radial nerve intact, ulnar nerve intact, median nerve intact Vascular: Present: vascular compromise, normal capillary refill, radial pulse, brachial pulse, ulnar pulse - Back Exam Back exam: Present: normal inspection, full ROM - Neurological Exam Neurological exam: Present: alert, oriented X3, normal gait - Psychiatric Psychiatric exam: Present: normal affect, normal mood - Skin Skin exam: Present: warm, dry, intact, normal color. Absent: rash ED Course Vital Signs 01/02/18 12:38 Temperature 98.2 F Pulse Rate 84 Respiratory 24 Rate Blood Pressure 120/73 O2 Sat by Pulse 97 Oximetry - Reevaluation(s) Reevaluation #1: 01/02/18 16:15 Patient is speaking in full sentences with no signs of distress noted. - Consultations Consultation #1: 01/02/18 16:15 Patient has been consulted with Dr. Kam about patient history, physical exam, and labs and examined and screened patient and agrees to ED plan of care and discharge plan of care. ED Medical Decision Making - Medical Decision Making This is a 67-year-old female that presents with right hand pain. Patient is stable and was examined by me and Dr. Kam. Patient was discharged without antibiotcs. There is no signs of cellulitis or abscess. Due to the history patient received empirical treatment of Keflex in the ED and discharged. Patient was instructed to Follow-up with a primary care/hand doctor in 3-5 days or if symptoms worsen and continue return to emergency room as soon as possible. At time of discharge, the patient does not seem toxic or ill in appearance. No acute signs of distress noted. Patient agrees to discharge treatment plan of care. No further questions noted by the patient. Critical care attestation.: If time is entered above; I have spent that time in minutes in the direct care of this critically ill patient, excluding procedure time. ED Disposition Clinical Impression: Right hand pain Disposition: DC-01 TO HOME OR SELFCARE Is pt being admited?: No Does the pt Need Aspirin: No Condition: Stable Instructions: Cephalexin (By mouth) Additional Instructions: Follow-up with a primary care/hand doctor in 3-5 days or if symptoms worsen and continue return to emergency room as soon as possible. Continue taking medications as prescribed by your previous provider and add Keflex as prescribed during this visit Prescriptions: Cephalexin [Keflex] 500 mg PO Q12HR 7 Days cap Referrals: DARLING DIA MD [Primary Care Provider] - 3-5 Days LOLI GONSALEZ MD [Staff Physician] - 3-5 Days [facility] [Outside] - 3-5 Days [facility] [Outside] - 3-5 Days Forms: Work/School Release Form(ED)
== END 2018-01-02 16:34 | disposition home or self-care (01) ==
LOC: ED 12:19
DX: M79.641 Pain in right hand (principal); I10 Essential (primary) hypertension; F32.9 Major depressive disorder, single episode, unspecified; Z88.6 Allergy status to analgesic agent
CPT/HCPCS: 99282

== ENCOUNTER 2018-02-07 10:07 | Outpatient (CLI) | payer MEDICARE ==
--- NOTE | 2018-02-07 16:56 | Ultrasound Report ---
ULTRASOUND GUIDED CYST ASPIRATION RIGHT BREAST: 02/07/18 CLINICAL: Complex cyst at 2 o'clock 5 cm from the nipple. COMPARISON: 12/29/17 FINDINGS: The procedure was explained to the patient and informed consent was obtained. Ultrasound demonstrated the previously described 8mm complex cyst at 2 o'clock 5 cm from the nipple. The skin was cleansed with Betadine and anesthetized with 1% lidocaine. A 20-gauge needle was introduced into the lesion with ultrasound guidance. Less than 1 cc of blood tinged fluidwas removed. The fluid was placed in Cytolyte and sent to the lab for analysis. The lesion showed complete collapse with aspiration. The patient tolerated the procedure well and there were no apparent complications. Ultrasound examination was also performed at 8 o'clock 10 cm from the nipple and this demonstrated a benign intramammary lymph node with central fatty hilum. This correlates with the previously described palpable lesion thought to be a cyst with a mural nodule. However, the morphology and central blood flow support this being a benign intramammary lymph node. IMPRESSION: Uncomplicated cyst aspiration right breast at 2 o'clock. Recommend a 3-month followup right mammogram and ultrasound if needed to reevaluate the previous mammographic finding. BIRADS 3 - - Probably Benign
== END 2018-02-07 10:08 | disposition home or self-care (01) ==
LOC: SPVWC 10:07
PROVIDERS: ATTEND Surgery
DX: N60.01 Solitary cyst of right breast (principal)
CPT/HCPCS: 88112

== ENCOUNTER → 2018-05-23 | Outpatient (CLI) | payer MEDICARE ==
--- NOTE | 2018-05-23 12:17 | Mammography Report ---
RIGHT DIGITAL DIAGNOSTIC MAMMOGRAM with CAD and RIGHT BREAST ULTRASOUND: 05/23/18 09:33:00 CLINICAL: Follow-up after aspiration of a complex cyst at 2 o'clock 5 cm from the nipple with negative cytology. COMPARISON:02/07/18 and 12/29/17 FINDINGS: The breast is heterogeneously dense, which may obscure small masses. No mass, architectural distortion or suspicious calcifications. Ultrasound of the right breast was performed at 2 o'clock 5 cm from the nipple and demonstrated a heterogeneous irregular heterogeneous solid mass measuring 1.6 x 0.3 x 0.7 cm. It appears to be the same lesion but has developed into a more solid mass. Ultrasound of the right breast demonstrated a stable benign intramammary lymph node at 8 o'clock 10 cm from the nipple. It measures 7 x 4 x 4 mm. IMPRESSION: 1. A suspicious 1.6 cm mass has developed at the site of the previous benign cyst aspiration at 2 o'clock 5 cm from the nipple. Recommend ultrasound-guided needle core biopsy. 2. A stable benign intramammary lymph node at 8 o'clock. BI-RADS CATEGORY: 4--Suspicious ACR BI-RADS MAMMOGRAPHIC CODES: 0 = Needs additional imaging evaluation; 1 = Negative; 2 = Benign; 3 = Probably benign; 4 = Suspicious; 5 = Malignant; 6 = Known biopsy-proven malignancy COMMENT: 1. Dense breast tissue, i.e., adenosis, fibrocystic changes, etc., may obscure an underlying neoplasm. 2. Approximately 10% of cancers are not detected with mammography. 3. A negative mammography report should not delay biopsy if a clinically suspicious mass is present. COMMENT: Patient follow-up letters are generated by our [employer] application.
== END | disposition home or self-care (01) ==
LOC: SPVWC 09:33
PROVIDERS: ATTEND Surgery
DX: R92.8 Other abnormal and inconclusive findings on diagnostic imaging of breast (principal); I10 Essential (primary) hypertension; Z88.6 Allergy status to analgesic agent; Z90.710 Acquired absence of both cervix and uterus

== ENCOUNTER 2018-05-29 09:43 | Outpatient (CLI) | payer MEDICARE ==
--- NOTE | 2018-05-29 11:34 | Mammography Report ---
RIGHT DIGITAL DIAGNOSTIC MAMMOGRAM: 05/29/18 09:43:00 CLINICAL: For clip placement immediately status post ultrasound biopsy. COMPARISON:05/23/18 FINDINGS: A biopsy clip is now identified in the upper outer quadrant. IMPRESSION: Concordant clip placement status post ultrasound biopsy. BI-RADS CATEGORY: 4--Suspicious Pathology pending.
--- NOTE | 2018-05-29 14:16 | Ultrasound Report ---
VACUUM ASSISTED ULTRASOUND GUIDED NEEDLE CORE BIOPSY WITH CLIP PLACEMENT RIGHT BREAST: 05/29/18 09:43:00 CLINICAL: Mass at 2 o'clock 5 cm from the nipple. COMPARISON :05/23/18 FINDINGS: The procedure was explained to the patient and informed consent was obtained. Ultrasound demonstrated the previously described mass. The skin was prepped with Betadine and anesthetized with 1% lidocaine. Vacuum-assisted needle core biopsy was performed through a small dermatotomy using ultrasound guidance, 2% lidocaine with epinephrine for deep anesthesia and a 10-gauge Mammotome Elite biopsy probe. Multiple cores were obtained and placed in formalin. A hydro-emma biopsy clip deployed at the site. Hemostasis was achieved with mild pressure to the site and a sterile dressing was applied. The patient tolerated the procedure well and there were no apparent complications. A two view mammogram demonstrated concordant clip placement. The patient left the department in good condition and was given instructions for wound care and follow up. IMPRESSION: Uncomplicated vacuum-assisted ultrasound core biopsy and clip placement right breast.
== END 2018-05-29 09:44 | disposition home or self-care (01) ==
LOC: SPVWC 09:43
PROVIDERS: ATTEND Surgery
DX: N63.10 Unspecified lump in the right breast, unspecified quadrant (principal); N64.89 Other specified disorders of breast; N60.41 Mammary duct ectasia of right breast; I10 Essential (primary) hypertension; Z90.710 Acquired absence of both cervix and uterus; Z88.6 Allergy status to analgesic agent; Z79.899 Other long term (current) drug therapy
CPT/HCPCS: 88305

== ENCOUNTER 2018-12-19 10:29 | Outpatient (CLI) | payer MEDICARE ==
--- NOTE | 2018-12-19 15:52 | Ultrasound Report ---
BILATERAL DIGITAL DIAGNOSTIC MAMMOGRAM with CAD and RIGHT BREAST ULTRASOUND: 12/19/18 10:29:00 CLINICAL: 6 month followup after benign right breast biopsy at 2 o'clock 5 cm from the nipple. COMPARISON:05/23/18, 02/07/18 and 12/29/17 exams. FINDINGS: The breasts are heterogeneously dense, which may obscure small masses.A right inner biopsy clip and no mammographic abnormality at the clip. A right upper asymmetry with architectural distortion is more prominent than on prior mammograms. The left breast is negative. Ultrasound of right breast (including all four quadrants and the retroareolar area) was performed and demonstrated numerous small cysts and no solid mass or shadowing. No mass at the previous biopsy site. No ultrasound finding in the upper breast to correlate with the asymmetry and architectural distortion on the mammogram. IMPRESSION: Benign cysts of the right breast and probably benign asymmetry and architectural distortion in the upper right breast with no ultrasound correlate. Negative left breast. BI-RADS CATEGORY: 3 - - Probably Benign RECOMMENDATION: 6 month followup right diagnostic mammogram and ultrasound if needed. ACR BI-RADS MAMMOGRAPHIC CODES: 0 = Needs additional imaging evaluation; 1 = Negative; 2 = Benign; 3 = Probably benign; 4 = Suspicious; 5 = Malignant; 6 = Known biopsy-proven malignancy COMMENT: 1. Dense breast tissue, i.e., adenosis, fibrocystic changes, etc., may obscure an underlying neoplasm. 2. Approximately 10% of cancers are not detected with mammography. 3. A negative mammography report should not delay biopsy if a clinically suspicious mass is present. COMMENT: Patient follow-up letters are generated by our [employer] application.
== END 2018-12-19 10:30 | disposition home or self-care (01) ==
LOC: SPVWC 10:29
PROVIDERS: ATTEND Surgery
DX: N60.01 Solitary cyst of right breast (principal); I10 Essential (primary) hypertension; Z90.710 Acquired absence of both cervix and uterus
CPT/HCPCS: 77066

== ENCOUNTER 2020-04-08 04:59 | Emergency (ER) | payer MEDICARE ==
[2020-04-08] MEDS ORDERED: MORPHINE 4 MG/1 ML INJ IV ONE ×2 (07:26→12:59)
[2020-04-08] MEDS ORDERED: ONDANSETRON 4 MG/2 ML INJ IV ONE (07:26)
--- NOTE | 2020-04-08 07:30 | Emergency Department Report ---
ED Abdominal Pain HPI - General Chief Complaint: Abdominal Pain Stated Complaint: ABD PAIN Time Seen by Provider: 04/08/20 07:11 Source: patient, EMS Mode of arrival: Wheelchair Limitations: No Limitations - History of Present Illness Initial Comments: Patient is 69 years old female with history of hypertension. Patient presented to the ER complaining of abdominal pain mainly to the right upper quadrant, right lower quadrant and to the right flank area. Patient stated that pain started last night and associated with nausea, vomiting and watery diarrhea. Patient denied any fever or chills. Patient denied any chest pain or shortness of breath. MD Complaint: abdominal pain -: Last night Location: RUQ, RLQ, R flank Radiation: none Migration to: no migration Severity: moderate Severity scale (0 -10): 5 Quality: cramping, sharp Consistency: constant - Related Data Home Medications Medication Instructions Recorded Confirmed Last Taken Citalopram [Celexa] 20 mg PO QDAY 12/29/17 12/29/17 12/29/17 Estrogens, Conjugated (Nf) 1.25 mg PO QDAY 12/29/17 12/29/17 12/29/17 [Premarin (Nf)] Pregabalin 25 mg PO DAILY 12/29/17 12/29/17 12/29/17 Simvastatin [Zocor TAB] 40 mg PO QHS 12/29/17 12/29/17 12/28/17 Previous Rx's Medication Instructions Recorded Last Taken Type Famotidine [Pepcid] 20 mg PO DAILY #30 tablet 12/31/17 Unknown Rx Prednisone [predniSONE 10 mg 10 mg PO .TAPER #1 tab.ds.pk 12/31/17 Unknown Rx (6-Day Pack, 21 Tabs)] traMADoL [Ultram 50 MG tab] 50 mg PO BID PRN #20 tablet 12/31/17 Unknown Rx cephALEXin [Keflex] 500 mg PO Q12HR 7 Days cap 01/02/18 Unknown Rx Allergies Allergy/AdvReac Type Severity Reaction Status Date / Time aspirin Allergy Itching Verified 12/29/17 21:26 latex Allergy Hives Verified 04/08/20 05:11 ED Review of Systems ROS: Stated complaint: ABD PAIN Other details as noted in HPI Comment: All other systems reviewed and negative Constitutional: denies: chills, fever Cardiovascular: denies: chest pain, palpitations, dyspnea on exertion Gastrointestinal: abdominal pain, nausea, vomiting, diarrhea. denies: constipation, hematemesis, melena, hematochezia Musculoskeletal: denies: back pain Neurological: denies: headache, weakness, numbness, paresthesias, confusion, abnormal gait ED Past Medical Hx - Past Medical History Previous Medical History?: Yes Hx Hypertension: Yes Hx Psychiatric Treatment: Yes (depression) Hx HIV: No Additional medical history: high cholestrol - Surgical History Past Surgical History?: Yes Hx Cholecystectomy: Yes Additional Surgical History: intestinal reconstruction. tubal ligation. hyster - Social History Smoking Status: Never Smoker Substance Use Type: Alcohol - Medications Home Medications: Home Medications Medication Instructions Recorded Confirmed Last Taken Type Citalopram [Celexa] 20 mg PO QDAY 12/29/17 12/29/17 12/29/17 History Estrogens, Conjugated (Nf) 1.25 mg PO QDAY 12/29/17 12/29/17 12/29/17 History [Premarin (Nf)] Pregabalin 25 mg PO DAILY 12/29/17 12/29/17 12/29/17 History Simvastatin [Zocor TAB] 40 mg PO QHS 12/29/17 12/29/17 12/28/17 History Famotidine [Pepcid] 20 mg PO DAILY #30 tablet 12/31/17 Unknown Rx Prednisone [predniSONE 10 mg 10 mg PO .TAPER #1 tab.ds.pk 12/31/17 Unknown Rx (6-Day Pack, 21 Tabs)] traMADoL [Ultram 50 MG tab] 50 mg PO BID PRN #20 tablet 12/31/17 Unknown Rx cephALEXin [Keflex] 500 mg PO Q12HR 7 Days cap 01/02/18 Unknown Rx ED Physical Exam - General Limitations: No Limitations General appearance: alert, in distress (Moderate distress secondary to pain) - Head Head exam: Present: atraumatic, normocephalic, normal inspection - Eye Eye exam: Present: normal appearance - ENT ENT exam: Present: normal exam, normal orophraynx, mucous membranes moist - Neck Neck exam: Present: normal inspection, full ROM. Absent: tenderness, meningismus, lymphadenopathy, thyromegaly - Respiratory Respiratory exam: Present: normal lung sounds bilaterally - Cardiovascular Cardiovascular Exam: Present: regular rate, normal rhythm, normal heart sounds - GI/Abdominal GI/Abdominal exam: Present: soft, normal bowel sounds. Absent: distended, tenderness, guarding, rebound, rigid, organomegaly, mass, bruit, pulsatile mass, hernia - Extremities Exam Extremities exam: Present: normal inspection, full ROM, normal capillary refill. Absent: pedal edema, calf tenderness - Back Exam Back exam: Present: normal inspection, full ROM, CVA tenderness (R). Absent: CVA tenderness (L), muscle spasm, paraspinal tenderness, vertebral tenderness - Neurological Exam Neurological exam: Present: alert, oriented X3, CN II-XII intact, normal gait, reflexes normal. Absent: motor sensory deficit - Psychiatric Psychiatric exam: Present: normal mood - Skin Skin exam: Present: warm, intact, normal color ED Course Vital Signs 04/08/20 04/08/20 04/08/20 05:08 08:12 09:30 Temperature 98.5 F Pulse Rate 85 72 72 Respiratory 18 20 15 Rate Blood Pressure 123/42 Blood Pressure 140/76 111/81 [Left] O2 Sat by Pulse 100 98 95 Oximetry ED Medical Decision Making - Lab Data Result diagrams: 04/08/20 10:11 04/08/20 10:11 - Radiology Data Radiology results: report reviewed - Medical Decision Making Patient is 69 years old female with history of hypertension. Patient presented to the ER complaining of abdominal pain mainly to the right upper quadrant, right lower quadrant and to the right flank area. Patient stated that pain started last night and associated with nausea, vomiting and watery diarrhea. Patient denied any fever or chills. Patient denied any chest pain or shortness of breath. Patient received morphine and Zofran. Patient stated that she is feeling much better. Labs reviewed and is unremarkable. CT abdomen and pelvis is negative for acute finding. Patient symptom is most likely related to gastroenteritis however patient advised to follow-up with her primary care physician in the next 2 to 3 days and to return to the ER if she develop any new symptoms or if her symptoms get worse. Critical care attestation.: If time is entered above; I have spent that time in minutes in the direct care of this critically ill patient, excluding procedure time. ED Disposition Clinical Impression: Abdominal pain, Gastroenteritis Disposition: DC-01 TO HOME OR SELFCARE Is pt being admited?: No Condition: Stable Instructions: Abdominal Pain (ED), Gastroenteritis (ED) Referrals: PRIMARY CARE, [Primary Care Provider] - 3-5 Days
[2020-04-08 10:18] LABS: Basophils % (Auto) 0.4 % (0.0-1.8); Eosinophils % (Auto) 0.1 % (0.0-4.3); Lymphocytes # (Auto) 1.5 K/mm3 (1.2-5.4); Lymphocytes % (Auto) 25.1 % (13.4-35.0); Mean Corpuscular HGB Conc 37 % (30-34); Mean Corpuscular Volume 78 fl (79-97); Monocytes # (Auto) 0.3 K/mm3 (0.0-0.8); Platelet Count 161 K/mm3 (140-440); Red Blood Count 4.34 M/mm3 (3.65-5.03); Red Cell Distribution Width 15.1 % (13.2-15.2)
[2020-04-08 10:20] LABS: Hemoglobin 12.4 gm/dl (10.1-14.3)
[2020-04-08 10:24] LABS: Bilirubin,Urine NEG (Negative); Blood,Urine MOD (Negative); Color,Urine Yellow (Yellow); Mucus,Urine FEW /HPF; Protein,Urine <15 mg/dL mg/dL (Negative); Urobilinogen,Urine < 2.0 mg/dL (<2.0)
[2020-04-08 10:57] LABS: BUN/Creatinine Ratio 20; Blood Urea Nitrogen 16 mg/dL (7-17)
[2020-04-08 10:58] LABS: Alanine Aminotransferase 9 units/L (7-56); Albumin 3.9 g/dL (3.9-5); Calcium 9.1 mg/dL (8.4-10.2)
[2020-04-08 11:01] LABS: Hemolysis Index 3
--- NOTE | 2020-04-08 13:00 | Cat Scan Report ---
CT ABDOMEN AND PELVIS WITH CONTRAST INDICATION: abdominal pain, RLQ pain, back pain, hx of hernia, gb removed OMNIPAQUE 300 100ML . TECHNIQUE: Axial CT images were obtained through the abdomen and pelvis after 100 cc Omnipaque [address] scans at this location are performed using CT dose reduction for ALARA by means of automated exposure control. COMPARISON: None available. FINDINGS: LOWER CHEST: Mild emphysema and linear scar/atelectasis right lower lobe. LIVER: Simple 3.5 cm cyst medial hepatic segment and multiple tiny subcentimeter hypodense lesions li viola represent cysts as well. GALLBLADDER: Surgically absent BILE DUCTS: No significant abnormality. PANCREAS: No significant abnormality. SPLEEN: No significant abnormality. ADRENALS: No significant abnormality. RIGHT KIDNEY and URETER: Simple 9 cm right renal cyst. LEFT KIDNEY and URETER: No significant abnormality. STOMACH and SMALL BOWEL: No significant abnormality. COLON: No significant abnormality. APPENDIX: Well-visualized and is normal. PERITONEUM: No free fluid. No free air. No fluid collection. LYMPH NODES: No significant adenopathy. AORTA and ARTERIES: No significant abnormality. IVC and VEINS: No significant abnormality. URINARY BLADDER: No significant abnormality. REPRODUCTIVE ORGANS: Uterus absent. 2 cm simple left ovarian follicular cyst. 3 cm simple right ovari an follicular cyst. ADDITIONAL FINDINGS: None. SKELETAL SYSTEM: Degenerative changes lower lumbar spine. IMPRESSION: 1. Simple bilateral ovarian follicular cysts measuring 3 cm on right and 2 cm on left. No free fluid. 2. No CT evidence for appendicitis or other acute inflammatory process. 3. Previous cholecystectomy and hysterectomy. Signer Name: Contreras Nielsen MD Signed: 04/08/2020 12:56 PM Workstation Name: [id number]
[2020-04-08 14:16] VITALS: BP 121/71
== END 2020-04-08 14:17 | disposition home or self-care (01) ==
LOC: ED 04:59
DX: K52.9 Noninfective gastroenteritis and colitis, unspecified (principal); I10 Essential (primary) hypertension; F32.9 Major depressive disorder, single episode, unspecified; Z98.51 Tubal ligation status; Z98.890 Other specified postprocedural states; Z88.6 Allergy status to analgesic agent; Z91.040 Latex allergy status
CPT/HCPCS: 36415; 74177; 80053; 81001; 83690; 85025; 96374; 96375; 96376; 99284; J2270; J2405; Q9967

== ENCOUNTER 2022-03-26 08:26 | Outpatient (CLI) | payer MEDICARE ==
--- NOTE | 2022-03-29 15:20 | Mammography Report ---
DIGITAL SCREENING MAMMOGRAM WITH CAD, 03/26/2022 CLINICAL INFORMATION / INDICATION: Routine screening mammography. TECHNIQUE: Digital bilateral 2D mammography was obtained in the craniocaudal and mediolateral obliqu e projections. This examination was interpreted with the benefit of Computer-Aided Detection analysis . COMPARISON: 06/26/2019, 12/19/2018, 05/29/2018 FINDINGS: Breast Density: The breasts are heterogeneously dense, which may obscure small masses. No dominant mass, suspicious calcifications, or architectural distortion in either breast. A biopsy clip is again seen in the 3:00 right breast anterior/middle depth. IMPRESSION: No mammographic evidence of malignancy. Follow up recommendation: Routine yearly screening mammogram. BI-RADS Category 2: BENIGN. A "normal" or negative report should not discourage follow up or biopsy of a clinically significant f inding. A written summary of these findings will be mailed to the patient. The patient will be entered into a mammography reporting system which will generate a reminder letter for the patient's next appointmen t at the appropriate interval. The [employer] recommends yearly mammograms starting at age 40 and continuing as l stephen as a woman is in good health. Breast MRI is recommended for women with an approximate 20-25% or greater lifetime risk of breast cancer, including women with a strong family history of breast or ova dhara cancer or who have been treated for Hodgkin's disease. Signer Name: Salvatore Ferrara MD Signed: 03/29/2022 3:15 PM Workstation Name: [email or web address]
== END 2022-03-26 08:27 | disposition home or self-care (01) ==
LOC: MAMMO 08:26
PROVIDERS: ATTEND Internal Medicine
DX: Z12.31 Encounter for screening mammogram for malignant neoplasm of breast (principal)
CPT/HCPCS: 77067